=== PATIENT | female | born 1955 | race American Indian/Alaskan Native ===

== ENCOUNTER 2019-01-08 06:22 | Day surgery (SDC) | payer OTHER ==
[2019-01-08] MEDS ORDERED: NACL 0.9% 1000 ML 1,000 ML IV SCH (07:00)
[2019-01-08] MEDS ORDERED: VERSED ONE (07:22)
[2019-01-08] MEDS ORDERED: DIPRIVAN 10 MG/ML IV ONE ×3 (07:22)
[2019-01-08] MEDS ORDERED: XYLOCAINE 1% 20 mL ONE (07:22)
--- NOTE | 2019-01-08 07:30 | Anesthesia Consultation ---
Anesthesia Consult and Med Hx Date of service: 01/08/19 - Airway Anesthetic Teeth Evaluation: Good ROM Head & Neck: Adequate Mental/Hyoid Distance: Adequate Mallampati Class: Class II Intubation Access Assessment: Good - Pulmonary Exam CTA: Yes - Cardiac Exam Cardiac Exam: RRR - Pre-Operative Health Status ASA Pre-Surgery Classification: ASA2 Proposed Anesthetic Plan: TIVA - Pulmonary Hx Smoking: No Hx Asthma: No Hx Respiratory Symptoms: No SOB: No COPD: No Home Oxygen Therapy: No Hx Pneumonia: No Hx Sleep Apnea: No - Cardiovascular System Hx Hypertension: Yes Hx Coronary Artery Disease: No Hx Heart Attack/AMI: No Hx Angina: No Hx Percutaneous Transluminal Coronary Angioplasty (PTCA): No - Gastrointestinal Hx Ulcer: Yes (past bleed gastric ulcer)
--- NOTE | 2019-01-08 07:32 | Anesthesia Day of Surgery ---
Anesthesia Day of Surgery - Day of Surgery Patient Examined: Yes Patient H&P Reviewed: Yes Patient is NPO: Yes
--- NOTE | 2019-01-08 08:10 | Operative Report ---
Operative Report Operative Report: DOS: 01/08/19 SURGEON: Shaheen Clay MD COLONOSCOPY REPORT PREOPERATIVE AND POSTOPERATIVE DIAGNOSIS: screening colonscopy DESCRIPTION OF PROCEDURE: The colonoscope was passed to the cecum as identified by the ileocecal valve and appendiceal orifice. Scope was carefully withdrawn. Retroflexion was performed in the rectum. At the end of procedure, the scope was cleaned using normal technique. Vital signs monitored continuously throughout. The procedure was hard because of significant tortuosity, with counterpressure utilized to complete the procedure. SEDATION: Provided by [facility]. Quality of the prep was good COMPLICATIONS: None. ESTIMATED BLOOD LOSS: none FINDINGS: * Small internal hemorrhoids * Exam otherwise normal RECOMMENDATIONS: * Repeat colonoscopy in 10 years
[2019-01-08 08:41] VITALS: BP 120/68
== END 2019-01-08 08:48 | disposition home or self-care (01) ==
LOC: GIO 06:22 → CATHLABREC 06:22 → EDSTATUS 07:30 → GIO 08:48
PROVIDERS: ATTEND Student in an Organized Health Care Education/Training Program
DX: Z12.11 Encounter for screening for malignant neoplasm of colon (principal); K64.8 Other hemorrhoids; I10 Essential (primary) hypertension; Z88.6 Allergy status to analgesic agent; Z79.899 Other long term (current) drug therapy
CPT/HCPCS: 45378; J2250; J2704; J7030